=== PATIENT | female | born 1980 | race Caucasian/White ===

== ENCOUNTER → 2016-05-16 | Outpatient (CLI) | payer OTHER ==
--- NOTE | 2016-05-17 11:14 | REP ---
Right hand four views : There is no fracture or dislocation. Mineralization and joint spaces are normal. There are no calcifications or foreign bodies. Impression: Negative right hand . Signed by Yobani Snow MD 05/16/2016 11:56 A
--- NOTE | 2016-05-17 11:15 | REP ---
Right wrist four views: There is an old healed distal radial fracture versus congenital variation in the appearance of the distal radius. There are no prior studies. There is an accessory ossicle lateral to the ulnar styloid. There is no acute fracture or dislocation. Mineralization joint spaces otherwise are unremarkable. Signed by Yobani Snow MD 05/16/2016 12:06 P
== END ==
LOC: M LRY 11:22
PROVIDERS: ATTEND Physician Assistant
DX: M25.531 Pain in right wrist (principal)
CPT/HCPCS: 73110; 73130; G0463